=== PATIENT | female | born 1995 | race Caucasian/White ===

== ENCOUNTER 2017-11-10 05:51 | Day surgery (SDC) | payer OTHER ==
[~2017-11-10] VITALS: Ht 152.4 cm; Wt 65.8 kg
[2017-11-10] MEDS ORDERED: BUPIVACAINE-MPF 0.25% 30 ML VIAL INJ ONE (06:44)
[2017-11-10] MEDS ORDERED: ceFAZolin 1,000 MG VIAL ONE (06:44)
[2017-11-10] MEDS ORDERED: ONDANSETRON 4 MG/2 ML VIAL ONE (09:25)
[2017-11-10] MEDS ORDERED: LIDOCAINE 2% 100 MG/5 ML SYR IVP ONE (09:25)
[2017-11-10] MEDS ORDERED: SEVOFLURANE 250 ML BTL INH ONE (09:25)
[2017-11-10] MEDS ORDERED: DEXAMETHASONE 4 MG/ML VIAL ONE (09:25)
[2017-11-10] MEDS ORDERED: PROPOFOL 200 MG/20 ML VIAL IV ONE (09:25)
[2017-11-10] MEDS ORDERED: MIDAZOLAM 2 MG/2 ML VIAL ONE (09:30)
[2017-11-10] MEDS ORDERED: fentaNYL 0.05 MG/ML VIAL ONE (09:30)
[2017-11-10] MEDS ORDERED: ONDANSETRON 4 MG/2 ML VIAL IVP PRN (09:55)
[2017-11-10] MEDS ORDERED: HYDROcodone/APAP 5/325 MG 1 TAB TAB PO PRN (11:00)
[2017-11-10] MEDS ORDERED: MORPHINE SULFATE 4 MG/ML SYR IV PRN (11:00)
[2017-11-10] MEDS ORDERED: ONDANSETRON 4 MG/2 ML VIAL IV PRN (11:00)
[2017-11-10] MEDS ORDERED: MORPHINE SULFATE 2 MG/ML SYR IVP PRN (11:00)
[2017-11-10] MEDS ORDERED: HYDROmorphone PFS 2 MG/ML SYR IVP PRN (11:00)
[2017-11-10] MEDS ORDERED: NACL 0.9% 1,000 ML IV SCH (11:00)
[2017-11-10] MEDS: HYDROmorphone PFS 2 MG/ML SYR IVP PRN ×4 (11:20→11:50)
[2017-11-10] MEDS ORDERED: HYDROmorphone PFS 2 MG/ML SYR ONE (11:23)
== END 2017-11-10 12:55 | disposition home or self-care (01) ==
LOC: MDS 05:51 → MMU 06:05 → MDS 12:55
PROVIDERS: ATTEND Surgery
DX: K42.9 Umbilical hernia without obstruction or gangrene (principal); E66.3 Overweight; J45.909 Unspecified asthma, uncomplicated; K21.9 Gastro-esophageal reflux disease without esophagitis; I12.9 Hypertensive chronic kidney disease with stage 1 through stage 4 chronic kidney disease, or unspecified chronic kidney disease; E11.22 Type 2 diabetes mellitus with diabetic chronic kidney disease; N18.9 Chronic kidney disease, unspecified; G40.901 Epilepsy, unspecified, not intractable, with status epilepticus; D64.9 Anemia, unspecified; F03.90 Unspecified dementia, unspecified severity, without behavioral disturbance, psychotic disturbance, mood disturbance, and anxiety; I48.91 Unspecified atrial fibrillation; F17.210 Nicotine dependence, cigarettes, uncomplicated; Z79.899 Other long term (current) drug therapy
CPT/HCPCS: 49585; 71045; C1781; J0690; J1100; J1170; J2001; J2250; J2405; J2704; J3010; J3490; J7060; J7120

== ENCOUNTER 2021-07-01 08:06 | Emergency (ER) | payer OTHER ==
[~2021-07-01] VITALS: Ht 157.5 cm; Wt 66.7 kg
[2021-07-01 08:36] VITALS: BP 125/89
--- NOTE | 2021-07-01 08:37 | NUR ---
PT TO WAIT IN TENT.
--- NOTE | 2021-07-01 08:55 | NUR ---
25 Y/O FEMALE C/O COUGH, SORETHROAT X1DAY. DENIES N/V, DENIES FEVER/CHILLS. PT STATES SHE HAD A + TEST X3DAYS AGO, LMP UNKNOWN DUE TO IRREGULARITIES. NO OB HAS BEEN SEEN YET. [id number]. DENIES PMH SX: UMBILICAL HERNIA NKA
--- NOTE | 2021-07-01 08:59 | NUR ---
COLLECTED RSV, JULIUS HURTADO WALKED TO LAB.
[2021-07-01 11:28] VITALS: BP 122/84
--- NOTE | 2021-07-01 11:28 | NUR ---
Patient discharged with v/s stable. Written and verbal after care instructions given and explained. Patient verbalized understanding. Ambulatory with steady gait. All questions addressed prior to discharge. Advised to follow up with PMD.
[2021-07-01 16:50] LABS: RSV NEGATIVE (NEGATIVE)
== END 2021-07-01 11:28 | disposition home or self-care (01) ==
LOC: MED 08:06
DX: B34.9 Viral infection, unspecified (principal); Z20.822 Contact with and (suspected) exposure to COVID-19
CPT/HCPCS: 87420; 87804; 99283

== ENCOUNTER 2021-07-13 14:03 | Emergency (ER) | payer OTHER ==
[~2021-07-13] VITALS: Ht 152.4 cm; Wt 69.9 kg
[2021-07-13 14:17] VITALS: BP 117/73
--- NOTE | 2021-07-13 14:20 | NUR ---
PT SENT TO LOBBY TO WAIT FOR AVAILABLE BED OR MSE.
[2021-07-13] MEDS ORDERED: ACETAMINOPHEN 650 MG/20.3 ML UDC PO ONE (14:45)
[2021-07-13 15:24] LABS: APPEARANCE,URINE CLEAR (CLEAR); BILIRUBIN,URINE NEGATIVE (NEGATIVE); BLOOD, URINE 3+ (NEGATIVE); COLOR,URINE YELLOW (YELLOW); LEUKOCYTE ESTERASE ,URINE 2+ (NEGATIVE); NITRITE, URINE NEGATIVE (NEGATIVE); UGLUCOSE NEGATIVE (NEGATIVE)
[2021-07-13 15:32] LABS: RBC,URINE 50-80 /HPF (0-5)
[2021-07-13 15:33] LABS: WBC,URINE 16-25 (MOD) /HPF (0-5)
[2021-07-13] MEDS ORDERED: ACETAMINOPHEN 325 MG TAB PO ONE (16:50)
--- NOTE | 2021-07-13 16:51 | NUR ---
PT ELOPED FROM FACILITY WITHOUT BEING DISCHARGED.
[2021-07-13] MEDS ORDERED: CEPH-588 PO (17:25)
== END 2021-07-13 16:51 | disposition left against medical advice (07) ==
LOC: MED 14:03
DX: O23.41 Unspecified infection of urinary tract in pregnancy, first trimester (principal); M54.9 Dorsalgia, unspecified; Z3A.09 9 weeks gestation of pregnancy
CPT/HCPCS: 76817; 81001; 81025; 87086; 99284; Q0092